=== PATIENT | female | born 1950 | race Caucasian/White ===

== ENCOUNTER → 2017-05-31 | Outpatient (CLI) | payer MEDICARE ==
[~2017-05-31] MED LIST: APIX5TAB PO; MULT-658 PO; OMNIPAQUE 350 MG/ML, 100ML BOTTLE ONE; SIMV20TA3 PO; SOTA80TA18 PO
== END ==
LOC: CFH 14:35
PROVIDERS: ATTEND Psychiatry & Neurology Neurology
DX: I67.82 Cerebral ischemia (principal); H49.11 Fourth [trochlear] nerve palsy, right eye
CPT/HCPCS: 70470; Q9967